=== PATIENT | female | born 1970 | race Caucasian/White ===

== ENCOUNTER 2020-05-05 15:26 | Inpatient (IN) | payer OTHER, SELFPAY ==
[2020-05-05] VITALS (7 sets, daily range): BP systolic 145–155; BP diastolic 90–101; PULSE 92–94; RESP 18–25; TEMP 36.9–37; O2SAT 91–95; BMI 48.4
--- NOTE | ~2020-05-05 | XR_ITS ---
EXAMINATION: XR chest 1V portable EXAM DATE: 05/05/2020 16:30 INDICATION: Dyspnea. COVID 19 positive. Cough. History of asthma. TECHNIQUE: Portable AP frontal chest x-ray was obtained. Comparison is made to prior examination from 04/14/2009. FINDINGS: There are some scattered linear and ill-defined opacities without dense confluent consolida tion. Could be mild findings related to acute lung injury from COVID-19 given history provided. They are new compared to 2008. There is no pneumothorax suspected. There are no pleural effusions. The car diomediastinal silhouette is prominent but magnified on this AP technique. There are no osseous abnor malities identified. IMPRESSION: Some scattered linear and ill-defined opacities could be mild acute lung injury. Reviewed, dictated and finalized at location A.
--- NOTE | 2020-05-05 15:30 | ECG_ITS ---
Measurements Intervals [place] Rate: 96 P: 37 GA: 156 QRS: -34 QRSD: 108 T: 36 QT: 318 QTc: 403 Interpretive Statements SINUS RHYTHM LEFT AXIS DEVIATION LOW QRS VOLTAGE IN PRECORDIAL LEADS INCOMPLETE RIGHT BUNDLE BRANCH BLOCK VOLTAGE CRITERIA FOR LVH BORDERLINE T WAVE ABNORMALITY- ANTEROLAT/INF LEADS BASELINE ARTIFACT- I, II, III, AVR, AVL, AVF, V4-V6 BORDERLINE ECG Electronically Signed On 05-05-2020 15:46:18 CDT by Mook Ball D.O.
--- NOTE | 2020-05-05 15:30 | ED.SOB ---
HPI - SOB/Dyspnea General Chief Complaint: Shortness of Breath/Dyspnea Stated Complaint: Covid + Time Seen by Provider: 05/05/20 15:29 Source: patient Mode of arrival: ambulatory Limitations: no limitations History of Present Illness HPI Narrative: Patient is a 49-year-old female with a history of asthma, breast cancer in remission, who presents for evaluation of shortness of breath in the setting of a positive COVID test. Patient states she had a positive COVID test 7 days ago, her was positive approximately 13 days ago and now entire family has COVID type symptoms. Patient reporting dry cough and shortness of breath. She is denying any chest pain. Patient states she has had intermittent fever, no diarrhea, no weakness. Patient has been able to tolerate oral intake. She states that she has been monitoring her pulse ox at home it has ranged between 92 to 94% at rest but decreases to 86% with any ambulation or exertion. Related Data Home Medications Medication Instructions Recorded Confirmed albuterol sulfate 90 mcg/actuation 1 puff INHALATION Q4H PRN 07/11/19 aerosol inhaler mometasone-formoterol HFA 100 2 puff INHALATION Q12H 07/11/19 mcg-5 mcg/actuation aerosol inhaler montelukast 10 mg tablet 10 mg PO DAILY 07/11/19 omeprazole magnesium 20 mg 20 mg PO DAILY 07/11/19 tablet,delayed release pregabalin 150 mg capsule 150 mg PO BID 07/11/19 tramadol 50 mg tablet 50 mg PO Q12H PRN tablet 07/11/19 cholecalciferol (vitamin D3) 125 5,000 unit PO DAILY 07/28/19 mcg (5,000 unit) capsule naproxen BID 05/05/20 prednisone See Rx Instructions .ROUTE .COMPLEX 05/05/20 tamoxifen mg DAILY 05/05/20 Allergies Allergy/AdvReac Type Severity Reaction Status Date / Time No Known Allergies Allergy Verified 05/05/20 15:45 Review of Systems Review of Systems: Narrative: CONSTITUTIONAL: Reports intermittent fever. EYES: Denies visual changes, redness, or discharge. ENT: Denies rhinorrhea, congestion, sore throat, or otalgia. CARDIOVASCULAR: Denies chest pain, palpitations, or edema. RESPIRATORY: Reports dry cough and shortness of breath GASTROINTESTINAL: Denies abdominal pain, nausea, vomiting, or diarrhea. GENITOURINARY: Denies dysuria or hematuria. SKIN: Denies rash or itching. MUSCULOSKELETAL: Denies back pain, joint pain, or myalgia. NEUROLOGIC: Denies headache, numbness, or weakness. [facility] Past Medical History Medical History Back pain, chronic Estrogen receptor positive status (ER+) Fatigue Fibromyalgia Gastro-esophageal reflux disease without esophagitis Malignant neoplasm of left breast in female, estrogen receptor negative Unspecified asthma, uncomplicated Social History Social History Smoking status: Never smoker Second hand tobacco smoke exposure: No Alcohol intake: current Gender identity (if verbalized by the patient): Female Exam Narrative: Exam Narrative: GENERAL: Awake, alert, mildly uncomfortable appearing HEAD: Normocephalic, atraumatic. EYES: PERRLA and EOMI. ENT: Nares clear, no rhinorrhea or epistaxis. Mucous membranes moist. NECK: Supple. CHEST: OXYGEN saturation 92% on room air, patient is mildly tachypneic, no audible wheezing, able to speak in short sentences HEART: Regular rate, sinus rhythm ABDOMEN: Obese, non distended, non tender EXTREMITIES: Normal range of motion. No edema. SKIN: Warm, dry, no rash. NEURO:No focal deficits. Alert and oriented x3 Course Vital Signs Vital signs: Vital Signs Pulse Rate 93 05/05/20 15:41 Temperature 36.9 C 05/05/20 15:51 Pulse Rate 92 05/05/20 15:51 Respiratory Rate 22 H 05/05/20 15:51 Blood Pressure 154/101 H 05/05/20 15:51 Pulse Oximetry 92 05/05/20 15:51 MDM - SOB/Dyspnea MDM Narrative Medical decision making narrative: Patient is a 49-year-old female with a recent positive COVID di
[2020-05-05 16:03] LABS: Alveolar/Arterial O2 Gradient 50.2 mmHg; Base Excess ABG 0.9 mEq/l (+/-2.0); Carboxyhemoglobin 0.6 % THb (0-2.0); Fractional Inspired Oxygen 21 %; HCO3 ABG 23.6 mEq/l (22.0-26.0); Methemoglobin ABG 0.3 %THb (0-1.5); Oxygen Content ABG 19.1 %vol (16.0-22.0); Oxygen Saturation ABG 93.1 % (95.0-100.0); Oxyhemoglobin 90.7 % THb (90.0-100.0); PCO2 ABG 32.5 mmHg (35.0-45.0); PO2 ABG 60.6 mmHg (80.0-100.0); PO2 FiO2 Ratio Arterial Blood 2.89 %; Reduced Hemoglobin 8.4 %THb (0-5.0); pH ABG 7.479 (7.350-7.450)
[2020-05-05 16:04] LABS: Device ROOM AIR; Modified Allen's Test Pass; Site Drawn RIGHT RADIAL
[2020-05-05 16:07] LABS: Basophils Percent Auto 0.1 % (0.2-1.2); Hematocrit 44.5 % (37.0-47.0); Hemoglobin 14.6 g/dL (12.0-15.0); Immature Granulocyte Absolute 0.05 K/mm3 (0.00-0.031); Immature Granulocyte Percent A 0.7 % (0-0.5); Lymphocytes Absolute Auto 0.89 K/mm3 (0.9-3.2); Lymphocytes Percent Auto 11.8 % (18.3-44.2); Mean Corpuscular HGB Conc 32.8 g/dl (32-36); Mean Corpuscular Hemoglobin 29.6 pg (26-34); Mean Corpuscular Volume 90.3 fl (80-100); Mean Platelet Volume 9.4 fl (7.4-10.4); Monocytes Absolute Auto 0.4 K/mm3 (0.1-0.6); Monocytes Percent Auto 4.6 % (2.6-8.5); Neutrophils Absolute Auto 6.2 K/mm3 (1.3-6.7); Neutrophils Percent Auto 82.8 % (45.5-73.1); Platelet Count Result 170 k/mm3 (150-375); Red Blood Count 4.93 M/mm3 (4.2-5.4); Red Cell Distribution Width 15.4 % (11.5-14.5); White Blood Count 7.5 K/mm3 (4.5-10.0)
[2020-05-05 16:17] LABS: INR 1.1; Prothrombin Time 13.5 Seconds (11.1-14.7)
[2020-05-05 16:21] LABS: Lactic Acid Reflex 1.4 mmol/L (0.7-2.1)
[2020-05-05 16:23] LABS: Alanine Aminotransferase 81 U/L (4-35); Albumin Level 3.6 g/dL (3.5-5.1); Alkaline Phosphatase 53 U/L (38-126); Anion Gap 8 mmol/L (8-16); Aspartate Amino Transferase 57 U/L (14-36); Bilirubin,Total 0.7 mg/dL (0.2-1.3); Blood Urea Nitrogen 20 mg/dL (7-17); CRP 1.6 mg/dL (<1.0); Calcium 9.4 mg/dL (8.4-10.2); Carbon Dioxide 24 mmol/L (22-30); Chloride 106 mmol/L (98-107); Estimated CRCL calculation 110 ml/min; Estimated Glomerular Filt Rate > 60; Glucose 114 mg/dL (65-105); Sodium 138 mmol/L (137-145)
[2020-05-05 16:32] LABS: Troponin I < 0.012 ng/mL (0.000-0.034)
[2020-05-05 16:43] LABS: Add Urine Microscopic? YES; Appearance Urine Clear (Clear); Bacteria Urine 3+ /hpf; Bilirubin Urine Negative (Negative); Blood Urine Negative (Negative); Color Urine Yellow (Yellow); Glucose Urine UA Negative (Negative); Ketones Urine Negative (Negative); Leukocyte Esterase Ur 3+ LEU/UL (Negative); Mucus Urine Rare /lpf; Nitrate Urine Negative (Negative); Protein Urine Negative (Negative); Renal Epithelial Cells Urine Occasional /hpf (None Seen); Specific Grav Ur 1.024 (1.001-1.035); Squamous Epithelial Cell Urine Many /hpf (Few); Urobilinogen Urine Negative mg/dL (<2.0); WBC Urine 51-75 /hpf
--- NOTE | 2020-05-05 20:13 | PC.NURSE ---
This patient, Kia Christopher, was admitted to 3 [facility] Surg Room 328-01. Patient/family oriented to hospital policies and general routines including ID bracelet, bed and alarms, visiting hours, pain management, procedures, bathroom and other care routines, personal items, smoking policy, room service/diet, and visiting hours. Valuables list has been completed. Information on how to activate the Rapid Response Team has been discussed. pt arrived at 1815 Patient/Family are encouraged to report perceived risks to care and to ask questions if they do not understand what they are told or what they should do.
--- NOTE | 2020-05-05 22:55 | PM.IMHP ---
H&P: HPI History of Present Illness Date/Time: 05/05/20 22:55 Chief complaint: COVID 19, Hypoxemia Narrative: Kia Christopher is a 49 year old female Who has a history of asthma and typically uses her inhalers. The patient tested positive for covid 19 on 04/29/2020. Her son does tested positive for covid 19 as well and her tested positive approximately 13 days ago. Her son and are doing well. However she was coughing and wheezing. She called her repairer wood furniture to try to get some home oxygen but was unable to get oxygen at home. She was very short of breath and would run a fever on and off. She has body aches. She has urinary frequency as well. Patient's oxygen levels were between 90-94% at rest but decreased to 86% with ambulation or exertion. No complaints of any chest pain or palpitations. Patient was placed on oxygen at 2 L per nasal cannula. She was given Decadron IV in the emergency room.. Chest x-ray was read as some scattered linear an ill-defined opacities could be mild acute lung injury. Date of service 05/05/2020 Review of Systems Review of Systems: Narrative: Urinary frequency All systems reviewed & are unremarkable except as noted in HPI and below Constitutional: Constitutional: Reports as per HPI and Reports no additional constitutional complaints Eyes: Eyes: Reports as per HPI and Reports no additional eye complaints ENT: Reports system reviewed and no additional complaints, except as documented and Reports Normal hearing present Cardiovascular: Cardiovascular: Reports no additional cardiovascular complaints Respiratory: Respiratory: Reports no additional respiratory complaints and Reports no additional respiratory complaints Gastrointestinal: Gastrointestinal: Reports as per HPI and Reports no additional gastrointestinal complaints Musculoskeletal: Musculoskeletal: Reports no additional musculoskeletal complaints Integumentary/Breasts: Skin/Breast: Reports system reviewed and no additional complaints, except as docu and Reports as per HPI Neurologic: Reports system reviewed and no additional complaints, except as documented, Reports as per HPI and Reports Normal hearing present Psychiatric: Psychiatric: Reports no additional psychiatric complaints and Reports as per HPI Endocrine: Endocrine: Reports no additional endocrine complaints Hematologic/Lymphatic: Hematologic/Lymphatic: Reports no additional hematologic/lymphatic complaints Allergic/Immunologic: Allergic/Immunologic: Reports no additional allergic/immunologic complaints [facility] Past Medical History Medical History (Updated 05/05/20 @ 23:09 by Francia Stevens NP) Asthma Back pain, chronic Breast cancer with radiation and chemotherapy now on tamoxifen. Estrogen receptor positive status (ER+) Fatigue Fibromyalgia Gastro-esophageal reflux disease without esophagitis Malignant neoplasm of left breast in female, estrogen receptor negative Unspecified asthma, uncomplicated Surgical History Surgical History (Updated 05/05/20 @ 23:00 by Francia Stevens NP) H/O left knee surgery History of section, classical History of tonsillectomy Hx of cholecystectomy S/P lumpectomy, left breast Family History Family History Father Hypertension Heart disease Grandparent Family history of lung cancer Acute myocardial infarction Social History Social History (Updated 05/05/20 @ 23:03 by Francia Stevens NP) Social History: she lives with her and 15-year-old son. 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 Patient desires to be a full code she occasionally has a glass a wine. No marijuana or illicit drugs. Her is a durable power sports attorney for healthcare the patient desires to be a full code. She never smoked. Smoking status: Never smoker Second hand tobacco smoke exposure: No Alcohol intake: unknown Substance u
[2020-05-05] MEDS: REMDESIVIR 200 MG/NS 250 ML 200 MG/250 ML BAG 250 MG IVPB (23:50)
[2020-05-05] MEDS: PREGABALIN 75 MG CAPSULE 150 MG PO (23:50)
[2020-05-05] MEDS: MONTELUKAST SODIUM 10 MG TABLET PO (23:50)
[2020-05-06] VITALS (9 sets, daily range): BP systolic 106–165; BP diastolic 65–85; PULSE 70–95; RESP 20; TEMP 36.3–37.3; O2SAT 87–95
[2020-05-06] MEDS: traMADol HCL 50 MG TABLET PO ×5 (00:05→20:10)
[2020-05-06 06:00] LABS: Basophils Percent Auto 0.1 % (0.2-1.2); Hematocrit 42.6 % (37.0-47.0); Hemoglobin 13.9 g/dL (12.0-15.0); Immature Granulocyte Absolute 0.04 K/mm3 (0.00-0.031); Immature Granulocyte Percent A 0.5 % (0-0.5); Lymphocytes Absolute Auto 1.58 K/mm3 (0.9-3.2); Lymphocytes Percent Auto 21.2 % (18.3-44.2); Mean Corpuscular HGB Conc 32.6 g/dl (32-36); Mean Corpuscular Hemoglobin 29.8 pg (26-34); Mean Corpuscular Volume 91.4 fl (80-100); Mean Platelet Volume 10.3 fl (7.4-10.4); Monocytes Absolute Auto 0.4 K/mm3 (0.1-0.6); Monocytes Percent Auto 4.7 % (2.6-8.5); Neutrophils Absolute Auto 5.5 K/mm3 (1.3-6.7); Neutrophils Percent Auto 73.5 % (45.5-73.1); Platelet Count Result 191 k/mm3 (150-375); Red Blood Count 4.66 M/mm3 (4.2-5.4); Red Cell Distribution Width 15.7 % (11.5-14.5); White Blood Count 7.5 K/mm3 (4.5-10.0)
[2020-05-06 06:33] LABS: Alanine Aminotransferase 64 U/L (4-35); Magnesium 1.9 mg/dL (1.6-2.3)
[2020-05-06 08:21] LABS: Anion Gap 10 mmol/L (8-16); Blood Urea Nitrogen 24 mg/dL (7-17); Calcium 9.1 mg/dL (8.4-10.2); Carbon Dioxide 22 mmol/L (22-30); Chloride 106 mmol/L (98-107); Estimated CRCL calculation 110 ml/min; Estimated Glomerular Filt Rate > 60; Glucose 160 mg/dL (65-105); Potassium 4.3 mmol/L (3.4-5.0); Sodium 138 mmol/L (137-145)
[2020-05-06] MEDS: PREGABALIN 75 MG CAPSULE 150 MG PO ×2 (08:48→17:05)
[2020-05-06] MEDS: ENOXAPARIN 40 MG/0.4 ML SYRINGE SUB-Q ×2 (08:48→20:10)
[2020-05-06] MEDS: LORATADINE 10 MG TABLET PO (08:48)
[2020-05-06] MEDS: PANTOPRAZOLE 40 MG TABLET PO (08:48)
[2020-05-06] MEDS: CHOLECALCIFEROL 1,000 UNITS TABLET 5000 UNITS PO (08:48)
[2020-05-06] MEDS: DEXAMETHASONE SOD PHOS INJ 4 MG/ML VIAL 6 MG IV PUSH (08:49)
--- NOTE | 2020-05-06 15:39 | PM.IMPN ---
Progress Note: A&P Assessment and Plan (1) COVID-19: Code(s): U07.1 - COVID-19 Status: Acute Assessment and Plan: She tested positive about 1 week prior to admission. Continue Decadron treatment Continue Remdesivir Supportive care with Tylenol for fevers, albuterol, Mucinex Monitor (2) Acute respiratory failure with hypoxia: Code(s): J96.01 - Acute respiratory failure with hypoxia Status: Acute Assessment and Plan: Patient satting in low-mid 90s on 3-3.5 L O2 NC. Likely secondary to COVID infection Continue treatment as detailed above We discussed proning and she states she will attempt to Wean O2 as tolerated. Consider Home O2 eval Monitor (3) Back pain, chronic: Code(s): M54.9 - Dorsalgia, unspecified; G89.29 - Other chronic pain Status: Acute Assessment and Plan: Continue with her tramadol for now Consider holding if respiratory status declines (4) Fibromyalgia: Code(s): M79.7 - Fibromyalgia Status: Chronic Assessment and Plan: Continue with Lyrica. (5) UTI (urinary tract infection): Code(s): N39.0 - Urinary tract infection, site not specified Status: Acute Assessment and Plan: Urine cultures are pending. Will continue with Rocephin. (6) Asthma: Code(s): J45.909 - Unspecified asthma, uncomplicated Status: Chronic Assessment and Plan: Asthma with allergies. Continue home Singulair and her inhalers. Will increase albuterol to 4 puffs [id number] as needed Continue Claritin (7) Malignant neoplasm of left breast in female, estrogen receptor negative: Code(s): C50.912 - Malignant neoplasm of unspecified site of left female breast; Z17.1 - Estrogen receptor negative status [ER-] Status: Acute Assessment and Plan: Patient had a left lumpectomy with chemo and radiation than the past. Will hold tamoxifen for now Subjective Date/time seen: 05/06/20 15:39 Interval history: Patient is a 49 yo morbidly obese female with history of asthma, fibromyalgia, and breast cancer (s/p left lumpectomy, on tamoxifen) who is here for Acute respiratory failure with hypoxia likely secondary to known COVID infection. Patient states she still feels short of breath. About the same since yesterday. SOB worsens with minimal movement in bed and especially with ambulation. She still has a nonproductive cough. She has chest tightness when coughing. She continues to have subjective f/c/s. She is trying to drink plenty of fluids. No other complaints at the moment. Denies headaches, dizziness, lightheadedness, changes in v/h, cp/palpitations, n/v/d/c, abd pain, changes in BMs, dysuria, hematuria, cloudy urine, calf pain/swelling. Review of Systems Review of Systems: All systems reviewed & are unremarkable except as noted in HPI and below Exam Narrative: Exam Narrative: General: Patient resting supine in bed. on 3.5 L O2 NC upon inspection in room HEENT: Normocephalic, EOMI, oral mucosa moist. Cardiovascular: Rate and rhythm are regular. No notable murmur, rub, or gallop. Respiratory: Lungs crackles noted; diminished breath sounds due to body habitus. Speaks in short sentences. Coughing noted. Abdomen: Soft, non-tender, non-distended, bowel sounds present. Extremities: Peripheral pulses intact. edema b/l. NTTP b/l calves Neuro: No focal neurological deficits. Speech is clear. Objective Data Vital Signs Vital Signs: Last Vital Signs Temp 98.6 F 05/06/20 12:00 Pulse 91 05/06/20 12:00 Resp 20 05/06/20 12:00 BP 153/77 H 05/06/20 12:00 Pulse Ox 91 05/06/20 12:00 Intake/Output Intake/Output: Intake & Output 05/03/20 05/04/20 05/05/20 05/06/20
[2020-05-06] MEDS: MONTELUKAST SODIUM 10 MG TABLET PO (20:10)
[2020-05-06] MEDS: guaiFENesin 12 HR 600 MG TABCR PO (20:10)
[2020-05-06] MEDS: REMDESIVIR 100 MG/NS 250 ML 100 MG/250 ML BAG 250 MG IVPB (23:33)
[2020-05-07] VITALS (8 sets, daily range): BP systolic 130–148; BP diastolic 74–84; PULSE 58–92; RESP 18–24; TEMP 36.7–37; O2SAT 91–96
[2020-05-07 07:39] LABS: Alanine Aminotransferase 70 U/L (4-35); Albumin Level 3.1 g/dL (3.5-5.1); Alkaline Phosphatase 43 U/L (38-126); Anion Gap 8 mmol/L (8-16); Aspartate Amino Transferase 49 U/L (14-36); Bilirubin,Total 0.6 mg/dL (0.2-1.3); Blood Urea Nitrogen 23 mg/dL (7-17); CRP 1.6 mg/dL (<1.0); Calcium 9.2 mg/dL (8.4-10.2); Carbon Dioxide 26 mmol/L (22-30); Chloride 104 mmol/L (98-107); Estimated CRCL calculation 110 ml/min; Estimated Glomerular Filt Rate > 60; Glucose 123 mg/dL (65-105); Lactate Dehydrogenase 535 U/L (313-618); Magnesium 1.7 mg/dL (1.6-2.3); Potassium 3.9 mmol/L (3.4-5.0); Sodium 138 mmol/L (137-145)
[2020-05-07 07:45] LABS: Basophils Percent Auto 0.3 % (0.2-1.2); Eosinophils Percent Auto 0.3 % (0-4.4); Hematocrit 42.7 % (37.0-47.0); Hemoglobin 13.9 g/dL (12.0-15.0); Immature Granulocyte Absolute 0.12 K/mm3 (0.00-0.031); Immature Granulocyte Percent A 1.8 % (0-0.5); Lymphocytes Percent Auto 35.8 % (18.3-44.2); Mean Corpuscular HGB Conc 32.6 g/dl (32-36); Mean Platelet Volume 9.8 fl (7.4-10.4); Monocytes Absolute Auto 0.3 K/mm3 (0.1-0.6); Monocytes Percent Auto 5.1 % (2.6-8.5); Neutrophils Absolute Auto 3.8 K/mm3 (1.3-6.7); Neutrophils Percent Auto 56.7 % (45.5-73.1); Platelet Count Result 159 k/mm3 (150-375); Red Blood Count 4.64 M/mm3 (4.2-5.4); Red Cell Distribution Width 15.5 % (11.5-14.5); White Blood Count 6.7 K/mm3 (4.5-10.0)
[2020-05-07] MEDS: PREGABALIN 75 MG CAPSULE 150 MG PO ×2 (08:05→17:21)
[2020-05-07] MEDS: CHOLECALCIFEROL 1,000 UNITS TABLET 5000 UNITS PO (08:05)
[2020-05-07] MEDS: traMADol HCL 50 MG TABLET PO ×3 (08:05→22:01)
[2020-05-07] MEDS: ENOXAPARIN 40 MG/0.4 ML SYRINGE SUB-Q ×2 (08:06→22:01)
[2020-05-07] MEDS: FLUTICASONE PROPIONATE 0.05% NA SPR 16 GM BTL (*BKC) 2 SPRAY NASAL (08:06)
[2020-05-07] MEDS: DEXAMETHASONE SOD PHOS INJ 4 MG/ML VIAL 6 MG IV PUSH (08:07)
[2020-05-07] MEDS: PANTOPRAZOLE 40 MG TABLET PO (08:07)
[2020-05-07] MEDS: guaiFENesin 12 HR 600 MG TABCR PO ×2 (08:07→22:02)
[2020-05-07] MEDS: LORATADINE 10 MG TABLET PO (08:07)
[2020-05-07] MEDS: BUDESONIDE/FORMOTEROL 80/4.5 MCG 6.9 GM INHALER (*SP) 2 PUFF INHALATION (08:38)
--- NOTE | 2020-05-07 15:59 | PM.IMPN ---
Progress Note: A&P Assessment and Plan (1) COVID-19: Code(s): U07.1 - COVID-19 Status: Acute Assessment and Plan: She tested positive about 1 week prior to admission. Continue Decadron treatment Continue Remdesivir Supportive care with Tylenol for fevers, albuterol, Mucinex Supplemental oxygen as needed Monitor (2) Acute respiratory failure with hypoxia: Code(s): J96.01 - Acute respiratory failure with hypoxia Status: Acute Assessment and Plan: Patient satting in mid 90s on 3 L O2 NC. Likely secondary to COVID infection Continue treatment as detailed above We discussed proning and she states she will attempt to do this if tolerable Wean O2 as tolerated. Consider Home O2 eval when close to discharge Monitor (3) Back pain, chronic: Code(s): M54.9 - Dorsalgia, unspecified; G89.29 - Other chronic pain Status: Acute Assessment and Plan: Discussed decreasing tramadol and patient was comfortable with switching to tramadol only as needed and using it sparingly Switch Tramadol to QID PRN Hold completely if respiratory status declines (4) Fibromyalgia: Code(s): M79.7 - Fibromyalgia Status: Chronic Assessment and Plan: Continue with Lyrica. (5) UTI (urinary tract infection): Code(s): N39.0 - Urinary tract infection, site not specified Status: Acute Assessment and Plan: Urine cultures growing E. coli sensitive to rocephin Will continue with Rocephin. (6) Asthma: Code(s): J45.909 - Unspecified asthma, uncomplicated Status: Chronic Assessment and Plan: Asthma with allergies. Continue home Singulair and her inhalers. Will continue with increased albuterol at 4 puffs [id number] as needed Continue Claritin (7) Malignant neoplasm of left breast in female, estrogen receptor negative: Code(s): C50.912 - Malignant neoplasm of unspecified site of left female breast; Z17.1 - Estrogen receptor negative status [ER-] Status: Acute Assessment and Plan: Patient had a left lumpectomy with chemo and radiation than the past. Will hold tamoxifen for now Subjective Date/time seen: 05/07/20 15:59 Interval history: Patient is a 49 yo morbidly obese female with history of asthma, fibromyalgia, and breast cancer (s/p left lumpectomy, on tamoxifen) who is here for Acute respiratory failure with hypoxia likely secondary to known COVID infection. Patient states she feels slightly better today. Cough still dry. BOLANOS as well. She was not able to prone comfortable yesterday or today. Still has chest tightness with cough. She continues to have subjective f/c/s. No other complaints at the moment. Denies headaches, dizziness, lightheadedness, changes in v/h, cp/palpitations, n/v/d/c, abd pain, changes in BMs, dysuria, hematuria, cloudy urine, calf pain/swelling. Review of Systems Review of Systems: All systems reviewed & are unremarkable except as noted in HPI and below Exam Narrative: Exam Narrative: General: Patient resting supine in bed. On 3 L O2 NC upon inspection in room HEENT: Normocephalic, EOMI, oral mucosa moist. Cardiovascular: Rate and rhythm are regular. No notable murmur, rub, or gallop. Respiratory: Lungs crackles noted; diminished breath sounds due to body habitus. Speaks in short sentences. Coughing noted. Abdomen: Soft, non-tender, non-distended, bowel sounds present. Extremities: Peripheral pulses intact. edema b/l. NTTP b/l calves Neuro: No focal neurological deficits. Speech is clear. Objective Data Vital Signs Vital Signs: Last Vital Signs Temp 98.5 F 05/07/20 12:00 Pulse 76 05/07/20 12:00 Resp 18 0
[2020-05-07] MEDS: MONTELUKAST SODIUM 10 MG TABLET PO (22:02)
[2020-05-07] MEDS: guaiFENesin/DEXTROMETHORPHAN 10 ML UDC 5 ML PO (22:52)
[2020-05-07] MEDS: ONDANSETRON INJ 4 MG/2 ML VIAL IV PUSH (22:52)
[2020-05-07] MEDS: REMDESIVIR 100 MG/NS 250 ML 100 MG/250 ML BAG 200 MG IVPB (22:59)
[2020-05-08] VITALS (8 sets, daily range): BP systolic 112–160; BP diastolic 72–95; PULSE 56–85; RESP 18–20; TEMP 36.6–36.8; O2SAT 93–95
[2020-05-08 07:51] LABS: Basophils Percent Auto 0.1 % (0.2-1.2); Eosinophils Absolute Auto 0.1 K/mm3 (0-0.3); Eosinophils Percent Auto 0.8 % (0-4.4); Hematocrit 42.7 % (37.0-47.0); Immature Granulocyte Absolute 0.04 K/mm3 (0.00-0.031); Immature Granulocyte Percent A 0.6 % (0-0.5); Lymphocytes Absolute Auto 2.38 K/mm3 (0.9-3.2); Lymphocytes Percent Auto 33.6 % (18.3-44.2); Mean Corpuscular HGB Conc 32.8 g/dl (32-36); Mean Corpuscular Hemoglobin 29.9 pg (26-34); Mean Platelet Volume 9.3 fl (7.4-10.4); Monocytes Absolute Auto 0.3 K/mm3 (0.1-0.6); Monocytes Percent Auto 4.2 % (2.6-8.5); Neutrophils Absolute Auto 4.3 K/mm3 (1.3-6.7); Neutrophils Percent Auto 60.7 % (45.5-73.1); Platelet Count Result 160 k/mm3 (150-375); Red Blood Count 4.69 M/mm3 (4.2-5.4); Red Cell Distribution Width 15.3 % (11.5-14.5); White Blood Count 7.1 K/mm3 (4.5-10.0)
[2020-05-08] MEDS: BUDESONIDE/FORMOTEROL 80/4.5 MCG 6.9 GM INHALER (*SP) 2 PUFF INHALATION (07:54)
[2020-05-08] MEDS: CHOLECALCIFEROL 1,000 UNITS TABLET 5000 UNITS PO (08:00)
[2020-05-08] MEDS: LORATADINE 10 MG TABLET PO (08:01)
[2020-05-08] MEDS: ENOXAPARIN 40 MG/0.4 ML SYRINGE SUB-Q ×2 (08:01→21:09)
[2020-05-08] MEDS: guaiFENesin 12 HR 600 MG TABCR PO ×2 (08:01→21:09)
[2020-05-08] MEDS: PANTOPRAZOLE 40 MG TABLET PO (08:01)
[2020-05-08] MEDS: traMADol HCL 50 MG TABLET PO ×2 (08:02→21:10)
[2020-05-08] MEDS: PREGABALIN 75 MG CAPSULE 150 MG PO ×2 (08:02→17:43)
[2020-05-08] MEDS: DEXAMETHASONE SOD PHOS INJ 4 MG/ML VIAL 6 MG IV PUSH (08:03)
[2020-05-08 08:12] LABS: Alanine Aminotransferase 70 U/L (4-35); Albumin Level 3.1 g/dL (3.5-5.1); Alkaline Phosphatase 45 U/L (38-126); Anion Gap 8 mmol/L (8-16); Aspartate Amino Transferase 47 U/L (14-36); Bilirubin,Total 0.7 mg/dL (0.2-1.3); Blood Urea Nitrogen 20 mg/dL (7-17); CRP 1.3 mg/dL (<1.0); Calcium 9.1 mg/dL (8.4-10.2); Carbon Dioxide 27 mmol/L (22-30); Chloride 103 mmol/L (98-107); Estimated CRCL calculation 110 ml/min; Estimated Glomerular Filt Rate > 60; Glucose 93 mg/dL (65-105); Lactate Dehydrogenase 474 U/L (313-618); Magnesium 1.6 mg/dL (1.6-2.3); Potassium 3.9 mmol/L (3.4-5.0); Sodium 138 mmol/L (137-145)
--- NOTE | 2020-05-08 13:40 | PM.IMPN ---
Progress Note: A&P Assessment and Plan (1) COVID-19: Code(s): U07.1 - COVID-19 Status: Acute Assessment and Plan: She tested positive about 1 week prior to admission. Patient symptomatically feels slightly better today, although still has significant BOLANOS and only taking a few steps at a time when ambulating Continue Decadron treatment Continue Remdesivir Supportive care with Tylenol for fevers, albuterol, Mucinex Supplemental oxygen as needed Monitor (2) Acute respiratory failure with hypoxia: Code(s): J96.01 - Acute respiratory failure with hypoxia Status: Acute Assessment and Plan: Patient satting in mid 90s on 3 L O2 NC. Likely secondary to COVID infection Continue treatment as detailed above We discussed proning and states she will attempt to do this if tolerable Wean O2 as tolerated. Consider Home O2 eval when close to discharge. Tentatively plan on finishing remdesivir treatment and obtaining Home O2 eval at that time and consider discharge if still clinically stable if not improved Monitor (3) Back pain, chronic: Code(s): M54.9 - Dorsalgia, unspecified; G89.29 - Other chronic pain Status: Acute Assessment and Plan: Discussed decreasing tramadol and patient was comfortable with switching to tramadol only as needed and using it sparingly Continue her home Tramadol as QID PRN Hold completely if respiratory status declines (4) Fibromyalgia: Code(s): M79.7 - Fibromyalgia Status: Chronic Assessment and Plan: Continue with Lyrica. (5) UTI (urinary tract infection): Code(s): N39.0 - Urinary tract infection, site not specified Status: Acute Assessment and Plan: Urine cultures growing E. coli sensitive to rocephin. Patient denying any symptoms at this moment Will do one more dose of Rocephin tonight and finish therapy with PO cefdinir tomorrow (6) Asthma: Code(s): J45.909 - Unspecified asthma, uncomplicated Status: Chronic Assessment and Plan: Asthma with allergies. Continue home Singulair and her inhalers. Will continue with increased albuterol at 4 puffs [id number] as needed Continue Claritin (7) Malignant neoplasm of left breast in female, estrogen receptor negative: Code(s): C50.912 - Malignant neoplasm of unspecified site of left female breast; Z17.1 - Estrogen receptor negative status [ER-] Status: Acute Assessment and Plan: Patient had a left lumpectomy with chemo and radiation than the past. Will hold tamoxifen for now Subjective Date/time seen: 05/08/20 13:40 Interval history: Patient is a 49 yo morbidly obese female with history of asthma, fibromyalgia, and breast cancer (s/p left lumpectomy, on tamoxifen) who is here for acute respiratory failure with hypoxia likely secondary to known COVID infection. Patient states she feels slightly better again today. More productive cough today with clear sputum. BOLANOS has improving. Appetite has improved as well. No other complaints at the moment. Denies f/c/ns, headaches, dizziness, lightheadedness, changes in v/h, cp/palpitations, n/v/d/c, abd pain, changes in BMs, dysuria, hematuria, cloudy urine, calf pain/swelling. Review of Systems Review of Systems: All systems reviewed & are unremarkable except as noted in HPI and below Exam Narrative: Exam Narrative: General: Patient resting supine in bed. On 3 L O2 NC upon inspection in room HEENT: Normocephalic, EOMI, oral mucosa moist. Cardiovascular: Rate and rhythm are regular. No notable murmur, rub, or gallop. Respiratory: Lungs crackles noted; diminished breath sounds due to body habitus. Speaks in longer sentences to
[2020-05-08] MEDS: MONTELUKAST SODIUM 10 MG TABLET PO (21:09)
[2020-05-09] VITALS (8 sets, daily range): BP systolic 106–130; BP diastolic 57–88; PULSE 60–96; RESP 16–20; TEMP 36.2–37.4; O2SAT 92–97
[2020-05-09] MEDS: REMDESIVIR 100 MG/NS 250 ML 100 MG/250 ML BAG 250 MG IVPB ×2 (00:43→23:43)
[2020-05-09 07:07] LABS: Basophils Percent Auto 0.2 % (0.2-1.2); Eosinophils Absolute Auto 0.1 K/mm3 (0-0.3); Eosinophils Percent Auto 0.7 % (0-4.4); Hematocrit 42.1 % (37.0-47.0); Hemoglobin 13.8 g/dL (12.0-15.0); Immature Granulocyte Absolute 0.04 K/mm3 (0.00-0.031); Immature Granulocyte Percent A 0.5 % (0-0.5); Lymphocytes Absolute Auto 1.91 K/mm3 (0.9-3.2); Lymphocytes Percent Auto 23.2 % (18.3-44.2); Mean Corpuscular HGB Conc 32.8 g/dl (32-36); Mean Corpuscular Hemoglobin 30.1 pg (26-34); Mean Corpuscular Volume 91.7 fl (80-100); Mean Platelet Volume 9.8 fl (7.4-10.4); Monocytes Absolute Auto 0.3 K/mm3 (0.1-0.6); Neutrophils Absolute Auto 5.9 K/mm3 (1.3-6.7); Neutrophils Percent Auto 71.4 % (45.5-73.1); Platelet Count Result 167 k/mm3 (150-375); Red Blood Count 4.59 M/mm3 (4.2-5.4); White Blood Count 8.3 K/mm3 (4.5-10.0)
[2020-05-09 08:40] LABS: Alanine Aminotransferase 59 U/L (4-35); Alkaline Phosphatase 43 U/L (38-126); Anion Gap 6 mmol/L (8-16); Aspartate Amino Transferase 33 U/L (14-36); Bilirubin,Total 0.7 mg/dL (0.2-1.3); Blood Urea Nitrogen 18 mg/dL (7-17); Calcium 9.1 mg/dL (8.4-10.2); Carbon Dioxide 29 mmol/L (22-30); Chloride 102 mmol/L (98-107); Estimated CRCL calculation 99 ml/min; Estimated Glomerular Filt Rate > 60; Glucose 97 mg/dL (65-105); Magnesium 1.5 mg/dL (1.6-2.3); Potassium 3.8 mmol/L (3.4-5.0); Sodium 137 mmol/L (137-145)
[2020-05-09] MEDS: PREGABALIN 75 MG CAPSULE 150 MG PO ×2 (09:05→16:08)
[2020-05-09] MEDS: DEXAMETHASONE SOD PHOS INJ 4 MG/ML VIAL 6 MG IV PUSH (09:06)
[2020-05-09] MEDS: CHOLECALCIFEROL 1,000 UNITS TABLET 5000 UNITS PO (09:06)
[2020-05-09] MEDS: LORATADINE 10 MG TABLET PO (09:07)
[2020-05-09] MEDS: CEFDINIR 300 MG CAPSULE PO ×2 (09:07→21:37)
[2020-05-09] MEDS: PANTOPRAZOLE 40 MG TABLET PO (09:07)
[2020-05-09] MEDS: ENOXAPARIN 40 MG/0.4 ML SYRINGE SUB-Q ×2 (09:07→21:37)
[2020-05-09] MEDS: guaiFENesin 12 HR 600 MG TABCR PO ×2 (09:07→21:37)
[2020-05-09] MEDS: traMADol HCL 50 MG TABLET PO ×2 (09:14→21:41)
[2020-05-09] MEDS: BUDESONIDE/FORMOTEROL 80/4.5 MCG 6.9 GM INHALER (*SP) 2 PUFF INHALATION (09:21)
--- NOTE | 2020-05-09 14:01 | PM.IMPN ---
Progress Note: A&P Assessment and Plan (1) COVID-19: Code(s): U07.1 - COVID-19 Status: Acute Assessment and Plan: She tested positive on 04/29. Patient symptomatically feels slightly better again today, although still requiring O2. Nursing working on weaning Continue Decadron treatment (12/03) Continue Remdesivir, last dose will be tonight (dose /) Supportive care with Tylenol for fevers, albuterol, Mucinex Supplemental oxygen as needed. Wean as tolerated Monitor (2) Acute respiratory failure with hypoxia: Code(s): J96.01 - Acute respiratory failure with hypoxia Status: Acute Assessment and Plan: Patient satting in >90s on 2L O2 NC. Likely secondary to COVID infection. Nursing attempting to wean patient Continue treatment as detailed above We discussed proning and states she will attempt to do this if tolerable Wean O2 as tolerated. Will do Home O2 eval tomorrow after 5th dose of remdesivir. Monitor (3) Back pain, chronic: Code(s): M54.9 - Dorsalgia, unspecified; G89.29 - Other chronic pain Status: Acute Assessment and Plan: Discussed decreasing tramadol and patient was comfortable with switching to tramadol only as needed and using it sparingly Continue her home Tramadol as QID PRN Hold completely if respiratory status declines (4) Fibromyalgia: Code(s): M79.7 - Fibromyalgia Status: Chronic Assessment and Plan: Continue with Lyrica. (5) UTI (urinary tract infection): Code(s): N39.0 - Urinary tract infection, site not specified Status: Acute Assessment and Plan: Urine cultures growing E. coli sensitive to rocephin. Patient denying any symptoms at this moment. Urgency has resolved 4 days of Rocephin earlier in stay; switched to cefdinir today. Will finish treatment tonight to complete 5 days total of antibiotics (6) Asthma: Code(s): J45.909 - Unspecified asthma, uncomplicated Status: Chronic Assessment and Plan: Asthma with allergies. Continue home Singulair and her inhalers. Will continue with increased albuterol at 4 puffs [id number] as needed Continue Claritin (7) Malignant neoplasm of left breast in female, estrogen receptor negative: Code(s): C50.912 - Malignant neoplasm of unspecified site of left female breast; Z17.1 - Estrogen receptor negative status [ER-] Status: Acute Assessment and Plan: Patient had a left lumpectomy with chemo and radiation than the past. Will hold tamoxifen for now Subjective Date/time seen: 05/09/20 14:01 Interval history: Patient is a 49 yo morbidly obese female with history of asthma, fibromyalgia, and breast cancer (s/p left lumpectomy, on tamoxifen) who is here for acute respiratory failure with hypoxia likely secondary to known COVID infection. Patient states she feels slightly better again today, but still not back to baseline. States she can walk more steps today and can make it to the bathroom without SOB, but notes she was to take about 15 min break in the bathroom. Still some chest tightness when coughing. Slightly productive cough today with clear sputum. No other complaints at the moment. Her urinary urgency has subsided. Denies f/c/ns, headaches, dizziness, lightheadedness, changes in v/h, cp/palpitations, n/v/d/c, abd pain, changes in BMs, dysuria, hematuria, cloudy urine, calf pain/swelling. Review of Systems Review of Systems: All systems reviewed & are unremarkable except as noted in HPI and below Exam Narrative: Exam Narrative: General: Patient sitting upright in bed. On 2 L O2 NC upon inspection in room HEENT: Normocephalic, EOMI, oral mucosa moist. Cardiovascular:
[2020-05-09] MEDS: MAGNESIUM SULF 1 GM/D5W 100 ML 1 GM/100 ML BAG IVPB (16:08)
[2020-05-09] MEDS: MONTELUKAST SODIUM 10 MG TABLET PO (21:37)
[2020-05-10] VITALS (14 sets, daily range): BP systolic 97–118; BP diastolic 52–68; PULSE 71–122; RESP 16–20; TEMP 36–37.8; O2SAT 87–97
[2020-05-10 06:10] LABS: Basophils Percent Auto 0.2 % (0.2-1.2); Eosinophils Percent Auto 0.5 % (0-4.4); Hematocrit 40.8 % (37.0-47.0); Hemoglobin 13.3 g/dL (12.0-15.0); Immature Granulocyte Absolute 0.06 K/mm3 (0.00-0.031); Immature Granulocyte Percent A 0.7 % (0-0.5); Immature Platelet Fraction Pct 2.1 % (0.9-11.2); Lymphocytes Absolute Auto 1.48 K/mm3 (0.9-3.2); Lymphocytes Percent Auto 18.2 % (18.3-44.2); Mean Corpuscular HGB Conc 32.6 g/dl (32-36); Mean Corpuscular Volume 92.1 fl (80-100); Monocytes Absolute Auto 0.4 K/mm3 (0.1-0.6); Monocytes Percent Auto 4.8 % (2.6-8.5); Neutrophils Absolute Auto 6.1 K/mm3 (1.3-6.7); Neutrophils Percent Auto 75.6 % (45.5-73.1); Platelet Count Result 153 k/mm3 (150-375); Red Blood Count 4.43 M/mm3 (4.2-5.4); White Blood Count 8.1 K/mm3 (4.5-10.0)
[2020-05-10 06:19] LABS: Alanine Aminotransferase 50 U/L (4-35); Albumin Level 3.1 g/dL (3.5-5.1); Alkaline Phosphatase 40 U/L (38-126); Anion Gap 5 mmol/L (8-16); Aspartate Amino Transferase 26 U/L (14-36); Bilirubin,Total 0.7 mg/dL (0.2-1.3); Blood Urea Nitrogen 16 mg/dL (7-17); Calcium 8.7 mg/dL (8.4-10.2); Carbon Dioxide 30 mmol/L (22-30); Chloride 101 mmol/L (98-107); Estimated CRCL calculation 110 ml/min; Estimated Glomerular Filt Rate > 60; Glucose 109 mg/dL (65-105); Magnesium 1.7 mg/dL (1.6-2.3); Potassium 3.8 mmol/L (3.4-5.0); Sodium 136 mmol/L (137-145)
[2020-05-10] MEDS: CHOLECALCIFEROL 1,000 UNITS TABLET 5000 UNITS PO (09:43)
[2020-05-10] MEDS: BUDESONIDE/FORMOTEROL 80/4.5 MCG 6.9 GM INHALER (*SP) 2 PUFF INHALATION (09:43)
[2020-05-10] MEDS: PREGABALIN 75 MG CAPSULE 150 MG PO ×2 (09:43→17:35)
[2020-05-10] MEDS: ENOXAPARIN 40 MG/0.4 ML SYRINGE SUB-Q ×2 (09:44→21:24)
[2020-05-10] MEDS: PANTOPRAZOLE 40 MG TABLET PO (09:44)
[2020-05-10] MEDS: LORATADINE 10 MG TABLET PO (09:44)
[2020-05-10] MEDS: DEXAMETHASONE SOD PHOS INJ 4 MG/ML VIAL 6 MG IV PUSH (09:44)
[2020-05-10] MEDS: guaiFENesin 12 HR 600 MG TABCR PO ×2 (09:44→21:23)
[2020-05-10] MEDS: traMADol HCL 50 MG TABLET PO ×2 (09:53→21:23)
--- NOTE | 2020-05-10 13:44 | HOMEO2EVAL ---
Home Oxygen Evaluation RC: Home Oxygen (O2) Evaluation Start: 05/10/20 09:00 Freq: ONCE Status: Active Protocol: RPE Activity Type Activity Date Activity User E-Sign Co-Sign Detail Recorded Client Recorded Date Recorded By Document 05/10/20 13:15 AKHIL [id number] 05/10/20 13:43 AKHIL Document 05/10/20 13:18 AKHIL [id number] 05/10/20 13:43 AKHIL Document 05/10/20 13:20 AKHIL [email or web address] 05/10/20 13:43 AKHIL Document 05/10/20 13:25 AKHIL [email or web address] 05/10/20 13:43 AKHIL Document 05/10/20 13:35 AKHIL [id number] 05/10/20 13:43 AKHIL 05/10/20 05/10/20 05/10/20 13:15 13:18 13:20 Home O2 Evaluation Test Phase Resting Resting Resting Oxygen Delivery Room Air Nasal Cannula Nasal Cannula Oxygen Flow Rate (L/min) 1 2 Pulse Oximetry (90-100 %) 87 L 87 L 92 Pulse Rate (60-100 beats/min) 89 96 Activity Tolerance Rating of Perceived Dyspnea (PD) Home Oxygen Evaluation Comments Treatment Charges O2 Evaluation 05/10/20 05/10/20 13:25 13:35 Home O2 Evaluation Test Phase Exercise Resting Oxygen Delivery Nasal Cannula Nasal Cannula Oxygen Flow Rate (L/min) 2 2 Pulse Oximetry (90-100 %) 90 93 Pulse Rate (60-100 beats/min) 122 H 93 Activity Tolerance Good Rating of Perceived Dyspnea (PD) +2 Mild, Some Difficulty, Noticeable to the Observer Home Oxygen Evaluation Comments PT REQUIRES 2 L AT REST AND WITH EXERTION Treatment Charges
--- NOTE | 2020-05-10 13:48 | PCRCNOTE ---
HOME O2 EVAL COMPLETED. PT REQUIRES 2L AT REST AND WITH EXERTION. SET UP WITH [facility]. HOME O2 TANK AND CART FOR DISCHARGE IS OUTSIDE PATIENT ROOM # [id number].
[2020-05-10] MEDS: ACETAMINOPHEN 325 MG TABLET 650 MG PO (14:05)
--- NOTE | 2020-05-10 14:48 | PM.IMPN ---
Progress Note: A&P Assessment and Plan (1) COVID-19: Code(s): U07.1 - COVID-19 Status: Acute Assessment and Plan: She tested positive on 04/29. She is feeling better but still requiring O2. Weaned to 1L and felt SOB so increased back to 2L per NC. Maintaining adequate oxygenation at 93%. Low grade fever this afternoon 100.1. Continue Decadron treatment (01/02) Completed 5 doses of remdesivir Supportive care with Tylenol for fevers, albuterol, Mucinex Supplemental oxygen as needed. Wean as tolerated with goal 92% or above Trend acute phase reactants (2) Acute respiratory failure with hypoxia: Code(s): J96.01 - Acute respiratory failure with hypoxia Status: Acute Assessment and Plan: Patient satting >90% on 2L O2 NC. Likely secondary to COVID infection. Continue supplemental O2 with goal 92% or greater Home O2 eval performed today and patient will require 2L O2 at rest and with exertion. (3) Back pain, chronic: Code(s): M54.9 - Dorsalgia, unspecified; G89.29 - Other chronic pain Status: Acute Assessment and Plan: Chronic. Well controlled at this time. Discussed decreasing tramadol and using only as needed, QID prn Hold completely if respiratory status declines (4) Fibromyalgia: Code(s): M79.7 - Fibromyalgia Status: Chronic Assessment and Plan: Continue with Lyrica. (5) UTI (urinary tract infection): Code(s): N39.0 - Urinary tract infection, site not specified Status: Acute Assessment and Plan: Urine cultures grew E. coli sensitive to rocephin. She denies any urinary symptoms. No leukocytosis. Low-grade fever, likely better explained by COVID-19. she completed 5 days total of antibiotic therapy. Four doses of IV Rocephin and 1 dose of p.o. cefdinir. (6) Asthma: Code(s): J45.909 - Unspecified asthma, uncomplicated Status: Chronic Assessment and Plan: Asthma with allergies. Continue home Singulair and her inhalers. Will continue with increased albuterol at 4 puffs [id number] as needed Continue Claritin (7) Malignant neoplasm of left breast in female, estrogen receptor negative: Code(s): C50.912 - Malignant neoplasm of unspecified site of left female breast; Z17.1 - Estrogen receptor negative status [ER-] Status: Acute Assessment and Plan: Patient had a left lumpectomy with chemo and radiation in the past in 2018. Her oncologist is located at [facility]. Tamoxifen has been held Subjective Date/time seen: 05/10/20 14:48 Interval history: Date of service: 05/10/2020 Kia Christopher is a 49-year-old female with a history of breast cancer and fibromyalgia who is seen in follow-up for COVID-19 pneumonia. She reports that she is feeling okay today. She had a difficult night last night stating that her oxygen levels were decreased down to 1 L and she felt quite short of breath while trying to sleep. O2 was increased to 2 L this morning and she reports that she was feeling much more comfortable and was able to rest. She endorses shortness of breath, BOLANOS, and occasional productive cough with white to yellow sputum production. She denies chest pain. She felt a little bit nauseous this morning but has not vomited. Appetite has been good. Denies dysuria or hematuria. Last bowel movement was yesterday afternoon she has any diarrhea. Her sense of taste and smell has returned. She has a mild tension type headache. No christy aches. Denies any dizziness, lightheadedness, weakness, or fatigue. She had a fever this afternoon but denies sweats or chills. Review of Systems Review of Systems: Narrative: A 12 point review of systems was reviewed with pertinent positives and negatives as per HPI. Exam Narrative: Exam Narrative: Ms. Christopher is an obese 49 year old female who is lying semi-recumbent in bed. She appears comfo
[2020-05-10] MEDS: MONTELUKAST SODIUM 10 MG TABLET PO (21:23)
[2020-05-11] VITALS: BP 112/63; PULSE 66; PULSE 73; RESP 20; TEMP 37.1; O2SAT 95
[2020-05-11 04:00] VITALS: BP 108/59; PULSE 58; PULSE 68; RESP 20; TEMP 37.1; O2SAT 95
[2020-05-11 07:00] LABS: Hematocrit 40.8 % (37.0-47.0); Hemoglobin 13.1 g/dL (12.0-15.0); Immature Platelet Fraction Pct 1.6 % (0.9-11.2); Mean Corpuscular HGB Conc 32.1 g/dl (32-36); Mean Corpuscular Hemoglobin 29.9 pg (26-34); Mean Corpuscular Volume 93.2 fl (80-100); Mean Platelet Volume 9.8 fl (7.4-10.4); Platelet Count Result 159 k/mm3 (150-375); Red Blood Count 4.38 M/mm3 (4.2-5.4); Red Cell Distribution Width 15.2 % (11.5-14.5); White Blood Count 7.3 K/mm3 (4.5-10.0)
[2020-05-11 07:05] LABS: Alanine Aminotransferase 43 U/L (4-35); Albumin Level 3.1 g/dL (3.5-5.1); Alkaline Phosphatase 40 U/L (38-126); Anion Gap 6 mmol/L (8-16); Aspartate Amino Transferase 22 U/L (14-36); Bilirubin,Total 1.1 mg/dL (0.2-1.3); Blood Urea Nitrogen 13 mg/dL (7-17); CRP 5.4 mg/dL (<1.0); Carbon Dioxide 28 mmol/L (22-30); Chloride 103 mmol/L (98-107); Estimated CRCL calculation 110 ml/min; Estimated Glomerular Filt Rate > 60; Glucose 103 mg/dL (65-105); Lactate Dehydrogenase 355 U/L (313-618); Potassium 3.9 mmol/L (3.4-5.0); Sodium 137 mmol/L (137-145)
[2020-05-11 08:00] VITALS: BP 103/73; PULSE 106; PULSE 92; RESP 18; RESP 22; TEMP 36.9; O2SAT 93; O2SAT 96
[2020-05-11] MEDS: DEXAMETHASONE SOD PHOS INJ 4 MG/ML VIAL 6 MG IV PUSH (08:42)
[2020-05-11] MEDS: CHOLECALCIFEROL 1,000 UNITS TABLET 5000 UNITS PO (08:42)
[2020-05-11] MEDS: PANTOPRAZOLE 40 MG TABLET PO (08:42)
[2020-05-11] MEDS: LORATADINE 10 MG TABLET PO (08:42)
[2020-05-11] MEDS: ENOXAPARIN 40 MG/0.4 ML SYRINGE SUB-Q (08:43)
[2020-05-11] MEDS: PREGABALIN 75 MG CAPSULE 150 MG PO (08:43)
[2020-05-11] MEDS: guaiFENesin 12 HR 600 MG TABCR PO (08:43)
[2020-05-11 09:19] VITALS: O2SAT 92
[2020-05-11] MEDS: traMADol HCL 50 MG TABLET PO (09:23)
[2020-05-11 12:00] VITALS: BP 132/73; PULSE 77; PULSE 79; RESP 20; TEMP 36.7; O2SAT 95
--- NOTE | 2020-05-11 14:17 | PM.DS ---
DS: Admitting Diagnosis Admitting Diagnosis Admitting Diagnosis: COVID 19, Hypoxemia DS: Discharge Diagnosis Discharge Diagnosis (1) COVID-19: Code(s): U07.1 - COVID-19 Status: Acute Assessment and Plan: She tested positive on 04/29. CXR showed scatter linear and ill defined opacities. She required up to 3L O2 and was weaned down to 2L. Home O2 eval performed and she will require 2L O2 at home with rest and exertion. She had a low grade fever with Tmax 100.1 that resolved. She completed 5 days of Remdesivir. She also received 5 doses of IV dexamethasone and will continue PO at home for 5 days to complete 10 days of therapy. Supportive care provided with bronchodilators, acetaminophen, and mucolytics. We spent extensive time discussing self-isolation and precautions to help prevent/slow the spread of COVID-19. (2) Acute respiratory failure with hypoxia: Code(s): J96.01 - Acute respiratory failure with hypoxia Status: Acute Assessment and Plan: Secondary to COVID-19. She became hypoxic down to 87%. She required up to 3L and was weaned to 1L. She became short of breath on 1L and therefore was increased to 2L where she will remain. Continue home oxygen. (3) Back pain, chronic: Code(s): M54.9 - Dorsalgia, unspecified; G89.29 - Other chronic pain Status: Acute Assessment and Plan: Chronic. Remained well controlled at this time. We discussed transitioning her tramadol to prn rather than scheduled, and she agreed. (4) Fibromyalgia: Code(s): M79.7 - Fibromyalgia Status: Chronic Assessment and Plan: Continue with Lyrica. (5) UTI (urinary tract infection): Qualifiers: Urinary tract infection type: acute cystitis Hematuria presence: without hematuria Qualified Code(s): N30.00 - Acute cystitis without hematuria Code(s): N39.0 - Urinary tract infection, site not specified Status: Acute Assessment and Plan: Urine cultures grew E. coli sensitive to rocephin. She denied any urinary symptoms. No leukocytosis. Low-grade fever, likely better explained by COVID-19. She completed 5 days total of antibiotic therapy with four doses of IV Rocephin and 1 dose of p.o. cefdinir. (6) Asthma: Code(s): J45.909 - Unspecified asthma, uncomplicated Status: Chronic Assessment and Plan: Asthma with allergies. Continue home Singulair, claritin, and inhalers. (7) Malignant neoplasm of left breast in female, estrogen receptor negative: Code(s): C50.912 - Malignant neoplasm of unspecified site of left female breast; Z17.1 - Estrogen receptor negative status [ER-] Status: Acute Assessment and Plan: Patient had a left lumpectomy with chemo and radiation in 2018. Her oncologist is located at [facility]. Tamoxifen was held given risk for clotting with COVID-19. She called her oncologist at discharge who advised continuing to hold this medication for 1 month. DS: Summary Hospital Course Reason for hospitalization: COVID-19 pneumonia Hospital Course: date of admission: 05/05/2020 date of discharge: 05/11/2020 Kia Christopher is a 49-year-old female with a history of asthma, ER positive breast cancer in remission, and fibromyalgia who presented to the emergency department on 05/05/2020 with complaints of shortness of breath and low oxygen saturation as measured at home. She tested positive for COVID-19 on 04/29/2020. She complained of dry cough and BOLANOS. At presentation, oxygen saturation was 92% on room air, RR 22, additional vital signs stable, WBC 7.5, electrolytes stable, urinalysis --, and CXR showing scattered linear ill-defined opacities. She was admitted to the hospitalist service for further evaluation and management. Please see above for further details. She was monitored closely with supplemental oxygen. She completed 5 days of Remdesivir and will continue PO Dexam
[2020-05-11 16:00] VITALS: BP 132/73; PULSE 77; RESP 20; TEMP 36.7; O2SAT 95
== END 2020-05-11 17:57 | disposition home or self-care (01) | DRG 177 ==
LOC: ANHED 18:07 → ANH3MEDSUR 18:11
PROVIDERS: Nurse Practitioner; Physician Assistant; Admitting Provider Hospitalist; Emergency Provider Emergency Medicine; PCP Internal Medicine; Visit Provider Internal Medicine
DX: U07.1 COVID-19 (principal); J96.01 Acute respiratory failure with hypoxia; N39.0 Urinary tract infection, site not specified; Z68.42 Body mass index [BMI] 45.0-49.9, adult; E66.01 Morbid (severe) obesity due to excess calories; B96.20 Unspecified Escherichia coli [E. coli] as the cause of diseases classified elsewhere; C50.912 Malignant neoplasm of unspecified site of left female breast; Z17.0 Estrogen receptor positive status [ER+]; J45.909 Unspecified asthma, uncomplicated; M79.7 Fibromyalgia; G89.29 Other chronic pain; M54.9 Dorsalgia, unspecified; Z79.810 Long term (current) use of selective estrogen receptor modulators (SERMs); Z79.899 Other long term (current) drug therapy
CPT/HCPCS: 36415; 36600; 71045; 80048; 80053; 81001; 82375; 82728; 82805; 83050; 83605; 83615; 83735; 84443; 84460; 84484; 85025; 85027; 85055; 85610; 85730; 86140; 87040; 87077; 87086; 87088; 87186; 93005; 94618; 94640; 96365; 96367; 96372; 96374; 96375; 99285; A9270; G0378; J0696; J1100; J1650; J2405; J3475

== ENCOUNTER 2020-05-25 15:33 | Outpatient (CLI) | payer OTHER, SELFPAY ==
--- NOTE | ~2020-05-25 | XR_ITS ---
XR chest 2V DATE: 05/25/2020 15:48 INDICATION: Fever, cough, shortness of breath, fatigue. Recent Covid 19 positive test. TECHNIQUE: PA and lateral views COMPARISON: 05/05/2020, 04/14/2009 FINDINGS: There is discoid atelectasis or less likely scarring In the left upper lung. There is mild infiltrate and/atelectasis in both lower lung zones and mild pa tchy infiltrate in the right mid to upper lung. Normal heart size. No hilar or mediastinal enlargement. No pleural effusion or pulmonary vascular con gestion or pneumothorax. IMPRESSION: Patchy bilateral infiltrates, relatively stable since 05/05/2020 Reviewed, dictated and finalized at location B.
== END 2020-05-25 15:34 | disposition home or self-care (01) ==
PROVIDERS: PCP Internal Medicine; Visit Provider Physician Assistant
DX: R50.9 Fever, unspecified (principal); R05 Cough; R91.8 Other nonspecific abnormal finding of lung field
CPT/HCPCS: 71046

== ENCOUNTER 2020-05-28 11:21 | Outpatient (CLI) | payer OTHER, SELFPAY ==
--- NOTE | ~2020-05-28 | CT_ITS ---
EXAMINATION: CT chest wo con EXAM DATE: 05/28/2020 12:27 INDICATION: Shortness of breath, fever. States COVID 19 one month ago. TECHNIQUE: Spiral CT of the chest without contrast. Axial, coronal and sagittal images were reviewe d. Coronal maximum intensity pixel images of chest reviewed. The dose-length product (DLP) for this examination was 867.93 mGy-cm. The exposure was tailored according to patient size (auto mA exposur e control), and iterative reconstruction (ASIR) was used as additional dose reduction technique. Marek elation is made to chest x-ray 05/25/2020. FINDINGS: There are multiple scattered regions of faint groundglass opacities, along with some regio ns of linear scarring/atelectasis. Appearance is consistent with sequela from COVID-19, although grou ndglass opacities may indicate persistent acute or subacute component. No confluent consolidation or pneumothorax. There is left breast cystic region measuring 5 cm, could be a seroma from prior mass resection given prior breast ultrasound in 2018, correlate with surgical history. There is hepatic steatosis with foc al region in the right liver lobe measuring about 7 cm, previously determined to be cavernous hemangi dina on prior MRI exam. There are no pleural or pericardial effusions. Tracheobronchial tree is pat ent. There is no mediastinal, hilar or axillary lymphadenopathy. There is no pneumothorax. Hear t normal in size. No evidence of coronary arterial calcification. There are cholecystectomy clips. There is thoracic spondylosis without osteoblastic or osteolytic lesions identified. IMPRESSION: 1. Scattered faint groundglass opacities and regions of linear scarring, consistent with COVID-19. Gr ound glass opacities could also indicate persistent acute or subacute disease superimposed on the mor e chronic linear regions. 2. Cystic left breast region may be surgical site, seroma from prior mass resection. 3. Hepatic steatosis with large cavernous hemangioma. Reviewed, dictated and finalized at location B. IMPRESSION: 1. Scattered faint groundglass opacities and regions of linear scarring, consis tent with COVID-19. Ground glass opacities could also indicate persistent acute or subacute disease superimposed on the more chronic linear regions. 2. Cystic left breast region may be surgical site, seroma from prior mass resec tion. 3. Hepatic steatosis with large cavernous hemangioma.
== END 2020-05-28 11:22 | disposition home or self-care (01) ==
PROVIDERS: PCP Internal Medicine; Visit Provider Physician Assistant
DX: R50.9 Fever, unspecified (principal); R05 Cough; R06.02 Shortness of breath; R91.8 Other nonspecific abnormal finding of lung field; K76.0 Fatty (change of) liver, not elsewhere classified; D18.09 Hemangioma of other sites
CPT/HCPCS: 71250

== ENCOUNTER 2020-05-31 14:02 | Outpatient (CLI) | payer OTHER, SELFPAY ==
[2020-05-31 14:46] LABS: Hematocrit 36.6 % (37.0-47.0); Hemoglobin 11.4 g/dL (12.0-15.0); Mean Corpuscular HGB Conc 31.1 g/dl (32-36); Mean Corpuscular Hemoglobin 29.9 pg (26-34); Mean Corpuscular Volume 96.1 fl (80-100); Mean Platelet Volume 9.6 fl (7.4-10.4); Platelet Count Result 261 k/mm3 (150-375); Red Blood Count 3.81 M/mm3 (4.2-5.4); Red Cell Distribution Width 16.3 % (11.5-14.5); White Blood Count 4.3 K/mm3 (4.5-10.0)
[2020-05-31 16:24] LABS: Anisocytosis 2+ (NORMAL); Band Neutrophils Percent 2 % (0-6); Eosinophils Absolute Manual 0.08 K/mm3 (0.02-0.5); Eosinophils Percent Manual 2 % (0-4); Lymphocytes Absolute Manual 1.16 K/mm3 (1.1-4.5); Monocytes Absolute Manual 0.34 K/mm3 (0.1-0.90); Monocytes Percent Manual 8 % (3-9); Neutrophils Percent Manual 61 % (46-73); Nucleated Red Blood Cells 1 %; Platelet Estimate Adequate (Adequate); Total Cells Counted 100
[2020-05-31 16:25] LABS: Polychromasia 1+ (NORMAL)
== END 2020-05-31 14:03 | disposition home or self-care (01) ==
PROVIDERS: PCP Internal Medicine; Visit Provider Physician Assistant
DX: R50.9 Fever, unspecified (principal)
CPT/HCPCS: 36415; 85025

== ENCOUNTER 2021-05-17 15:08 | Emergency (ER) | payer OTHER, SELFPAY ==
[2021-05-17 15:18] VITALS: BP 107/68; PULSE 82; RESP 16; TEMP 36.3; O2SAT 98
--- NOTE | 2021-05-17 15:51 | ED.FEMALEGU ---
HPI - Female Genitourinary General Chief complaint: Urogenital-Female Stated complaint: uti complaints Source: patient and RN notes reviewed Limitations: no limitations History of Present Illness HPI Narrative: The overweight patient, was on several meds including for diabetes, presents with urinary symptoms. Patient states she has a shorter couple day history of left side pain associated with urinary frequency , urgency and malodor. This is like prior UTI, and was preceded by nausea and vomiting x1 over the weekend. No fever, hematuria, vaginal discharge, abdominal pain, nausea/vomiting now; she is status post cholecystectomy and lumbar surgery Related Data Home Medications Medication Instructions Recorded Confirmed albuterol sulfate 90 mcg/actuation 1 puff INHALATION Q4H PRN 07/11/19 05/30/20 aerosol inhaler mometasone-formoterol HFA 100 2 puff INHALATION DAILY 07/11/19 05/30/20 mcg-5 mcg/actuation aerosol inhaler montelukast 10 mg tablet 10 mg PO HS 07/11/19 05/30/20 omeprazole magnesium 20 mg 20 mg PO DAILY 07/11/19 05/30/20 tablet,delayed release pregabalin 150 mg capsule 150 mg PO BID 07/11/19 05/30/20 cholecalciferol (vitamin D3) 125 5,000 unit PO DAILY 07/28/19 05/30/20 mcg (5,000 unit) capsule naproxen 500 mg PO BID 05/05/20 05/30/20 tamoxifen 20 mg DAILY 05/05/20 05/05/20 Allergies Allergy/AdvReac Type Severity Reaction Status Date / Time No Known Allergies Allergy Verified 05/24/20 14:18 Review of Systems Review of Systems: General/Constitutional: No weight loss,fever Eyes: N0: Redness,discharge Ears/Nose/Throat: No: Epistaxis,ear discharge Respiratory: Denies: Hemoptysis Gastrointestinal: No Vomiting, Bleeding-rectal Skin: No Lumps, eruption Neurologic: No Focal Weakness,Sz Hematologic: Denies: Petechiae/Purpura Psychiatric: No: Suicida ideationl All Other Systems: Reviewed and Negative [facility] Past Medical History Medical History (Updated 05/17/21 @ 15:57 by William Craig MD) Asthma Back pain, chronic Breast cancer with radiation and chemotherapy now on tamoxifen. Estrogen receptor positive status (ER+) Fatigue Fibromyalgia Gastro-esophageal reflux disease without esophagitis Malignant neoplasm of left breast in female, estrogen receptor negative Unspecified asthma, uncomplicated Surgical History Surgical History H/O left knee surgery History of section, classical History of tonsillectomy Hx of cholecystectomy S/P lumpectomy, left breast Family History Family History Father Hypertension Heart disease Grandparent Family history of lung cancer Acute myocardial infarction Social History Social History Social History: she lives with her and 15-year-old son. 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 Patient desires to be a full code she occasionally has a glass a wine. No marijuana or illicit drugs. Her is a durable power civil rights attorney for healthcare the patient desires to be a full code. She never smoked. Smoking status: Never smoker Second hand tobacco smoke exposure: No Alcohol intake: unknown Substance use: unknown Gender identity (if verbalized by the patient): Female Spiritual care concerns: No Comments At time of signature, agree with nursing past medical, surgical, social and family history. There is no relevant family history pertinent to the presenting complaint Exam Narrative: General Appearance: Well appearing, No distress EYE: PERRLA, Conjunctiva clear Ears: External ear normal Nose: Normal nose Mouth/Throat: Normal appearing, Normal lips Neck: Supple Respiratory: Airway patent, No respiratory distress Cardiovascular: RRR Abdomen: Soft, Non-tender, No massess, no CVAT Musculoskeletal: Full ROM Sk
== END 2021-05-17 16:02 | disposition home or self-care (01) ==
PROVIDERS: Emergency Provider Emergency Medicine
DX: N39.0 Urinary tract infection, site not specified (principal); J45.909 Unspecified asthma, uncomplicated; M79.7 Fibromyalgia; K21.9 Gastro-esophageal reflux disease without esophagitis; Z85.3 Personal history of malignant neoplasm of breast; Z92.21 Personal history of antineoplastic chemotherapy; Z92.3 Personal history of irradiation
CPT/HCPCS: 81003; 87086; 87088; 99213; G0463

== ENCOUNTER 2021-09-22 12:18 | Emergency (ER) | payer OTHER, SELFPAY ==
[2021-09-22 12:27] VITALS: BP 105/64; PULSE 84; RESP 12; TEMP 36.3; O2SAT 98
--- NOTE | 2021-09-22 12:41 | ED.URI ---
HPI - URI/Sore Throat General Chief Complaint: Upper Respiratory Infection Stated Complaint: Sore Throat Time Seen by Provider: 09/22/21 12:45 Source: patient, RN notes reviewed and old records reviewed Mode of arrival: ambulatory Limitations: no limitations History of Present Illness HPI Narrative: 51 year old female who presents to [facility] care with complaints of sore throat and some shortness of breath for the past 3 days. Patient does have history of asthma and reports that her breathing has been worse and she has felt some tightness to her chest with her breathing and increased dyspnea with activity, denies any noted wheezing and has not used her albuterol inhaler. Patient reports that she was treated about 5 weeks ago with an antibiotic for ear infection and also sinus infection and seemed to get better till the past 3 days of symptoms. Patient states history of COVId about a year ago but states that her son had COVId 3 weeks ago. Patient reports that she has had 2 covid vaccinations and also flu shot, has not had COVID booster. Patient is breast cancer survivor and takes Tamoxifen. MD elicited complaint: sore throat Pertinent past history: asthma Onset (ago): day(s) (3) Consistency: constant Related Data Home Medications Medication Instructions Recorded Confirmed albuterol sulfate 90 mcg/actuation 1 puff INHALATION Q4H PRN 07/11/19 09/22/21 aerosol inhaler montelukast 10 mg tablet 10 mg PO HS 07/11/19 09/22/21 pregabalin 150 mg capsule 150 mg PO BID 07/11/19 09/22/21 cholecalciferol (vitamin D3) 125 5,000 unit PO DAILY 07/28/19 09/22/21 mcg (5,000 unit) capsule tamoxifen 20 mg DAILY 05/05/20 09/22/21 atorvastatin 10 mg PO DAILY 09/22/21 09/22/21 blood sugar diagnostic [OneTouch 09/22/21 09/22/21 Verio test strips] fesoterodine [Toviaz] 4 mg PO DAILY 09/22/21 09/22/21 fluticasone furoate-vilanterol 2 inh INHALATION DAILY 09/22/21 09/22/21 [Breo Ellipta] lancets [OneTouch Delica Plus 09/22/21 09/22/21 Lancet] lisinopril 5 mg PO DAILY 09/22/21 09/22/21 metformin 500 mg PO BID 09/22/21 09/22/21 metoprolol succinate 25 mg PO DAILY 09/22/21 09/22/21 semaglutide [Ozempic] 1 mg SUBCUT WEEKLY 09/22/21 09/22/21 spironolactone 25 mg PO DAILY 09/22/21 09/22/21 tizanidine 2 mg PO HS 09/22/21 09/22/21 Allergies Allergy/AdvReac Type Severity Reaction Status Date / Time No Known Allergies Allergy Verified 09/22/21 12:20 Review of Systems Review of Systems: CONSTITUTIONAL: Denies fever, chills, or sweats. EYES: Denies visual changes, redness, or discharge. ENT: Positive for rhinorrhea, congestion, sore throat, left ear pressure CARDIOVASCULAR: Denies chest pain, palpitations, or edema. RESPIRATORY: Positive for cough and some dyspnea. GASTROINTESTINAL: Denies abdominal pain, nausea, vomiting, or diarrhea. GENITOURINARY: Denies dysuria or hematuria. SKIN: Denies rash or itching. MUSCULOSKELETAL: Denies back pain, joint pain, or myalgia. NEUROLOGIC: Denies headache, numbness, or weakness. PSYCHIATRIC: Denies anxiety or depression. All systems reviewed & are unremarkable except as noted in HPI and below PMFSH Past Medical History Medical History (Updated 09/22/21 @ 13:11 by Fernanda Vergara NP) Asthma Back pain, chronic Breast cancer with radiation and chemotherapy now on tamoxifen. Estrogen receptor positive status (ER+) Fatigue Fibromyalgia Gastro-esophageal reflux disease without esophagitis Malignant neoplasm of left breast in female, estrogen receptor negative Unspecified asthma, uncomplicated Surgical History Surgical History H/O left knee surgery History of section, classical History of tonsillectomy Hx of cholecystectomy S/P lumpectomy, left breast Family History Family History Father Hypertension Heart disease Grandparent Family history of lung cancer Acute
[2021-09-23 17:11] LABS: SARS-CoV-2 RNA PCR Negative
== END 2021-09-22 13:13 | disposition home or self-care (01) ==
PROVIDERS: Emergency Provider Registered Nurse
DX: J06.9 Acute upper respiratory infection, unspecified (principal); J45.41 Moderate persistent asthma with (acute) exacerbation; Z20.822 Contact with and (suspected) exposure to COVID-19; Z85.3 Personal history of malignant neoplasm of breast; Z92.21 Personal history of antineoplastic chemotherapy; M79.7 Fibromyalgia; K21.9 Gastro-esophageal reflux disease without esophagitis; Z86.16 Personal history of COVID-19
CPT/HCPCS: 87081; 87426; 87880; 99213; C9803; G0463; U0003; U0005

== ENCOUNTER 2022-12-16 15:02 | Emergency (ER) | payer OTHER, SELFPAY ==
[2022-12-16 15:14] VITALS: BP 108/57; PULSE 57; RESP 16; TEMP 36.4; O2SAT 100
--- NOTE | 2022-12-16 15:41 | ED.FEMALEGU ---
HPI - Female Genitourinary General Chief complaint: Urogenital-Female Stated complaint: Female Urogenital Time Seen by Provider: 12/16/22 15:34 Source: patient and RN notes reviewed Mode of arrival: ambulatory Limitations: no limitations History of Present Illness HPI Narrative: Patient presents today with a 3 day history of hematuria, frequency, urgency, cloudy and malodorous urine. She also reports some mild low back pain, but is unsure if this is due to her current symptoms or her chronic back pain. Denies abdominal pain or fever. She has tried no [id number] treatment prior to arrival. Related Data Home Medications Medication Instructions Recorded Confirmed albuterol sulfate 90 mcg/actuation 1 puff inhalation Q4H PRN 07/11/19 12/16/22 aerosol inhaler (Ventolin HFA) Shortness Of Breath Or Wheezing montelukast 10 mg tablet 10 mg PO HS 07/11/19 12/16/22 (Singulair) pregabalin 150 mg capsule (Lyrica) 150 mg PO BID 07/11/19 12/16/22 cholecalciferol (vitamin D3) 125 5,000 unit PO DAILY 07/28/19 12/16/22 mcg (5,000 unit) capsule tamoxifen 20 mg tablet 20 mg DAILY 05/05/20 12/16/22 atorvastatin 10 mg tablet 10 mg PO DAILY 09/22/21 12/16/22 blood sugar diagnostic ([facility] 09/22/21 12/16/22 Verio test strips) fesoterodine 4 mg tablet,extended 4 mg PO DAILY 09/22/21 12/16/22 release 24 hr (Toviaz) fluticasone furoate 200 2 inh inhalation DAILY 09/22/21 12/16/22 mcg-vilanterol 25 mcg/dose inhalation powder (Breo Ellipta) lancets 33 gauge ([facility] Delica 09/22/21 12/16/22 Plus Lancet) lisinopril 5 mg tablet 5 mg PO DAILY 09/22/21 12/16/22 metformin 500 mg tablet 500 mg PO BID 09/22/21 12/16/22 metoprolol succinate 25 mg 25 mg PO DAILY 09/22/21 12/16/22 tablet,extended release 24 hr semaglutide 1 mg/dose (4 mg/3 mL) 1 mg subcut WEEKLY 09/22/21 12/16/22 subcutaneous pen injector (Ozempic) spironolactone 25 mg tablet 25 mg PO DAILY 09/22/21 12/16/22 tizanidine 2 mg tablet 2 mg PO HS 09/22/21 12/16/22 Allergies Allergy/AdvReac Type Severity Reaction Status Date / Time No Known Allergies Allergy Verified 12/16/22 15:07 Review of Systems Review of Systems: CONSTITUTIONAL: Denies body aches, fever, chills, or sweats. EYES: Denies visual changes, redness, or discharge. ENT: Denies rhinorrhea, congestion, sore throat, or otalgia. CARDIOVASCULAR: Denies chest pain, palpitations, or edema. RESPIRATORY: Denies cough or dyspnea. GASTROINTESTINAL: Denies abdominal pain, nausea, vomiting, or diarrhea. GENITOURINARY: + hematuria, frequency cloudy and malodorous urine SKIN: Denies rash, itching, or wounds. MUSCULOSKELETAL: Denies joint pain, or myalgia.+ low back pain NEUROLOGIC: Denies headache, numbness, tingling, or weakness. PSYCH: Denies depression or anxiety. [facility] Past Medical History Medical History (Updated 12/16/22 @ 15:50 by Elissa Mueller, [place], [place]) Asthma Back pain, chronic Breast cancer with radiation and chemotherapy now on tamoxifen. Estrogen receptor positive status (ER+) Fatigue Fibromyalgia Gastro-esophageal reflux disease without esophagitis Malignant neoplasm of left breast in female, estrogen receptor negative Unspecified asthma, uncomplicated Surgical History Surgical History H/O left knee surgery History of section, classical History of tonsillectomy Hx of cholecystectomy S/P lumpectomy, left breast Family History Family History Father Hypertension Heart disease Grandparent Family history of lung cancer Acute myocardial infarction Social History Social History Social History: she lives with her and 15-year-old son. 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 Patient desires to be a full code she occasionally has a glass a wine. No
== END 2022-12-16 15:52 | disposition home or self-care (01) ==
PROVIDERS: Emergency Provider Nurse Practitioner
DX: N30.01 Acute cystitis with hematuria (principal); J45.909 Unspecified asthma, uncomplicated; M79.7 Fibromyalgia; Z85.3 Personal history of malignant neoplasm of breast
CPT/HCPCS: 81003; 87086; 87088; 99213; G0463

== ENCOUNTER 2023-07-16 15:21 | Emergency (ER) | payer OTHER, SELFPAY ==
[2023-07-16 15:36] VITALS: BP 122/71; PULSE 87; RESP 16; TEMP 35.9; O2SAT 97
--- NOTE | 2023-07-16 15:58 | ED.FEMALEGU ---
HPI - Female Genitourinary General Chief complaint: Urogenital-Female Stated complaint: uti symptom Time Seen by Provider: 07/16/23 15:40 Source: patient Mode of arrival: ambulatory Limitations: no limitations History of Present Illness HPI Narrative: Kia is a 52-year-old female patient presenting to the clinic today with complaints of possible UTI x2 and half weeks. She reports or her symptoms initially began she started on Macrobid by her PCP however she lost the prescription, she ended up finding the prescription and taking it a few days later. States that it seems like her urinary tract infection never improved and is actually getting worse. She reports chills, body aches, right flank pain, frequency, urgency, and some burning with urination. No known fever or abdominal pain. Related Data Home Medications Medication Instructions Recorded Confirmed albuterol sulfate 90 mcg/actuation 1 puff inhalation Q4H PRN 07/11/19 07/16/23 aerosol inhaler (Ventolin HFA) Shortness Of Breath Or Wheezing montelukast 10 mg tablet 10 mg PO HS 07/11/19 07/16/23 (Singulair) pregabalin 150 mg capsule (Lyrica) 150 mg PO BID 07/11/19 07/16/23 cholecalciferol (vitamin D3) 125 5,000 unit PO DAILY 07/28/19 07/16/23 mcg (5,000 unit) capsule tamoxifen 20 mg tablet 20 mg DAILY 05/05/20 07/16/23 atorvastatin 10 mg tablet 10 mg PO DAILY 09/22/21 07/16/23 blood sugar diagnostic ([facility] 09/22/21 07/16/23 Verio test strips) fesoterodine 4 mg tablet,extended 4 mg PO DAILY 09/22/21 07/16/23 release 24 hr (Toviaz) fluticasone furoate 200 2 inh inhalation DAILY 09/22/21 07/16/23 mcg-vilanterol 25 mcg/dose inhalation powder (Breo Ellipta) lancets 33 gauge ([facility] 09/22/21 07/16/23 Plus Lancet) lisinopril 5 mg tablet 5 mg PO DAILY 09/22/21 07/16/23 metformin 500 mg tablet 500 mg PO BID 09/22/21 07/16/23 metoprolol succinate 25 mg 25 mg PO DAILY 09/22/21 07/16/23 tablet,extended release 24 hr semaglutide 1 mg/dose (4 mg/3 mL) 1 mg subcut WEEKLY 09/22/21 07/16/23 subcutaneous pen injector (Ozempic) spironolactone 25 mg tablet 25 mg PO DAILY 09/22/21 07/16/23 tizanidine 2 mg tablet 2 mg PO HS 09/22/21 07/16/23 Allergies Allergy/AdvReac Type Severity Reaction Status Date / Time No Known Allergies Allergy Verified 07/16/23 15:28 Review of Systems Review of Systems: Pertinent positives per HPI. Patient denies any fever, chills, rash, headache, visual changes, dizziness, cough, runny nose, sore throat, shortness of breath, chest pain, palpitations, nausea, vomiting, diarrhea, constipation, abdominal pain PMFSH Past Medical History Medical History (Updated 07/16/23 @ 16:01 by Ang De Leon APRN) Asthma Back pain, chronic Breast cancer with radiation and chemotherapy now on tamoxifen. Estrogen receptor positive status (ER+) Fatigue Fibromyalgia Gastro-esophageal reflux disease without esophagitis Malignant neoplasm of left breast in female, estrogen receptor negative Unspecified asthma, uncomplicated Surgical History Surgical History H/O left knee surgery History of section, classical History of tonsillectomy Hx of cholecystectomy S/P lumpectomy, left breast Family History Family History Father Hypertension Heart disease Grandparent Family history of lung cancer Acute myocardial infarction Social History Social History Social History: she lives with her and 15-year-old son. 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 Patient desires to be a full code she occasionally has a glass a wine. No marijuana or illicit drugs. Her is a durable power bankruptcy attorney for healthcare the patient desires to be a full code. She never smoked. Smoking status: Never smoker Second hand to
[2023-07-16] MEDS: cefTRIAXone 1 GM, LIDOCAINE HCL 1% LOCAL INJ 2.1 ML IM (16:10)
== END 2023-07-16 16:20 | disposition home or self-care (01) ==
PROVIDERS: Emergency Provider Nurse Practitioner Family
DX: N12 Tubulo-interstitial nephritis, not specified as acute or chronic (principal); B96.20 Unspecified Escherichia coli [E. coli] as the cause of diseases classified elsewhere; J45.909 Unspecified asthma, uncomplicated; M79.7 Fibromyalgia; K21.9 Gastro-esophageal reflux disease without esophagitis; Z85.3 Personal history of malignant neoplasm of breast; Z92.3 Personal history of irradiation; Z92.21 Personal history of antineoplastic chemotherapy
CPT/HCPCS: 81003; 87077; 87086; 87186; 96372; 99213; G0463; J0696